=== PATIENT | female | born 1970 | race American Indian/Alaskan Native ===

== ENCOUNTER 2016-08-24 14:57 | Outpatient (CLI) | payer OTHER ==
--- NOTE | 2016-08-24 15:37 | Mammography Report ---
BILATERAL MAMMOGRAM with CAD: HISTORY: Cancer screening. FINDINGS: There are scattered fibroglandular densities (approximately 25%-50% glandular). No mass, distortion, suspicious calcification, or skin change is seen. IMPRESSION: Negative mammogram. There is no mammographic evidence of malignancy. RECOMMENDATION: Follow-up per ACS guidelines. BI-RADS CATEGORY: 1 = Negative ACR BI-RADS MAMMOGRAPHIC CODES: 0 = Needs additional imaging evaluation; 1 = Negative; 2 = Benign; 3 = Probably benign; 4 = Suspicious; 5 = Malignant; 6 = Known biopsy-proven malignancy COMMENT: 1. Dense breast tissue, i.e., adenosis, fibrocystic changes, etc., may obscure an underlying neoplasm. 2. Approximately 10% of cancers are not detected with mammography. 3. A negative mammography report should not delay biopsy if a clinically suspicious mass is present. COMMENT: Patient follow-up letters are generated in [facility].
== END 2016-08-24 14:58 | disposition home or self-care (01) ==
LOC: MAMMO 14:57
PROVIDERS: ATTEND Family Medicine
DX: Z12.31 Encounter for screening mammogram for malignant neoplasm of breast (principal)
CPT/HCPCS: 77067; G0202

== ENCOUNTER 2016-12-29 07:37 | Day surgery (SDC) | payer OTHER ==
[2016-12-29] MEDS ORDERED: NACL 0.9% 1000 ML 1,000 ML IV SCH (08:00)
[2016-12-29] MEDS ORDERED: DIPRIVAN 10 MG/ML IV ONE ×2 (08:21)
--- NOTE | 2016-12-29 08:32 | Anesthesia Day of Surgery ---
Anesthesia Day of Surgery - Day of Surgery Patient Examined: Yes Patient H&P Reviewed: Yes Patient is NPO: Yes
--- NOTE | 2016-12-29 08:33 | Anesthesia Consultation ---
Anesthesia Consult and Med Hx Date of service: 12/29/16 - Airway Anesthetic Teeth Evaluation: Poor (missing many on upper and lower) ROM Head & Neck: Adequate Mental/Hyoid Distance: Adequate Mallampati Class: Class II Intubation Access Assessment: Probably Good - Pulmonary Exam CTA: Yes - Cardiac Exam Cardiac Exam: RRR - Pre-Operative Health Status ASA Pre-Surgery Classification: ASA3 Proposed Anesthetic Plan: MAC - Pulmonary Hx Smoking: No Hx Asthma: No - Cardiovascular System Hx Hypertension: Yes - Gastrointestinal Hx Gastroesophageal Reflux Disease: Yes - Endocrine Hx Non-Insulin Dependent Diabetes: Yes - Other Systems Hx Obesity: Yes
--- NOTE | 2016-12-29 08:47 | Short Stay Summary ---
Short Stay Documentation - Allergies and Medications Current Medications: Allergies No Known Allergies Allergy (Unverified 12/29/16 07:37) Home Medications Medication Instructions Recorded Confirmed Last Taken Type Folic Acid [Folic Acid] 12/29/16 12/28/16 History amLODIPine [Norvasc] 12/29/16 12/28/16 History metFORMIN [Glucophage] 12/29/16 12/27/16 History Active Medications Sodium Chloride (Nacl 0.9% 1000 Ml) 1,000 mls @ 50 mls/hr IV DIRECT [place]IL[place] Last Admin: 12/29/16 08:32 Dose: 50 mls/hr - Brief post op/procedure progress note Date of procedure: 12/29/16 Pre-op diagnosis: 1. Epigastric pain 2. RUQ abdominal pain 3. Functional dyspepsia Post-op diagnosis: same (1. GERD 2. Gastritis with antral erosions 3. Gastric ulcer (linear) 4. Duodenitis 5, Diverticulum, Duodenal bulb) Procedure: EGD with biopsy Anesthesia: MAC Findings: as above Surgeon: MANNY RODRIGUEZ Estimated blood loss: none Pathology: list (1. Antrum) Specimen disposition: to lab Condition: stable - Disposition Condition at discharge: Stable Disposition: DC-01 TO HOME OR SELFCARE Short Stay Discharge Plan Activity: no restrictions Weight Bearing Status: Full Weight Bearing Diet: regular Follow up with: HODA DESHPANDE MD [Primary Care Provider] - 7 Days
[2016-12-29 09:13] VITALS: BP 155/86
--- NOTE | 2016-12-29 10:01 | Post Anesthesia Evaluation ---
- Post Anesthesia Evaluation Patient Participated: Yes Airway Patent: Yes Stable Respiratory Function: Yes Nausea/Vomiting: No Temp > 96.8F: Yes Pain Manageable: Yes Adequeate Hydration: Yes Anesthesia Complications: No
== END 2016-12-29 07:38 | disposition home or self-care (01) ==
LOC: GIO 07:37
PROVIDERS: ATTEND Internal Medicine Gastroenterology
DX: K29.00 Acute gastritis without bleeding (principal); K25.3 Acute gastric ulcer without hemorrhage or perforation; K29.80 Duodenitis without bleeding; K26.3 Acute duodenal ulcer without hemorrhage or perforation; K57.10 Diverticulosis of small intestine without perforation or abscess without bleeding; K21.9 Gastro-esophageal reflux disease without esophagitis; I10 Essential (primary) hypertension; E11.9 Type 2 diabetes mellitus without complications; E66.01 Morbid (severe) obesity due to excess calories; Z68.42 Body mass index [BMI] 45.0-49.9, adult; Z79.899 Other long term (current) drug therapy; Z79.84 Long term (current) use of oral hypoglycemic drugs; Z98.890 Other specified postprocedural states
CPT/HCPCS: 43239; 81025; 88305; 88342; J2704; J7030

== ENCOUNTER 2017-12-18 08:45 | Outpatient (CLI) | payer OTHER ==
--- NOTE | 2017-12-18 15:20 | XRay Report ---
XRAY RIGHT HIP TWO VIEWS: 12/18/17 08:45:00 CLINICAL: Pain. FINDINGS: No fracture or dislocation.An enthesophyte at the greater trochanter. The hip joint is normal. The pelvic bones and left hip are normal. Normal SI joints. Normal soft tissues. IMPRESSION: Right trochanteric enthesopathy and otherwise normal right hip.
--- NOTE | 2017-12-18 22:42 | XRay Report ---
FINAL REPORT EXAM: XR KNEE BILAT 1-2V HISTORY: HIP AND KNEE PROBLEMS TECHNIQUE: Two views of each knee Comparison: None FINDINGS: Normal bony mineralization. Left knee demonstrates medial joint space narrowing and tibial spine blunting, mild medial femoral condylar and tibial plateau spurring. There is left greater than right superior patellar pole enthesophyte and osteophyte formation. No definite suprapatellar bursal effusion. No chondrocalcinosis. The medial lateral joint space on the right are preserved. IMPRESSION: Left knee [id number] tricompartmental osteoarthritis. Mild right knee patellofemoral arthritis.
== END 2017-12-18 08:46 | disposition home or self-care (01) ==
LOC: XRAY 08:45
PROVIDERS: ATTEND Internal Medicine
DX: M17.0 Bilateral primary osteoarthritis of knee (principal); M77.8 Other enthesopathies, not elsewhere classified; I10 Essential (primary) hypertension; K21.9 Gastro-esophageal reflux disease without esophagitis; E11.9 Type 2 diabetes mellitus without complications; E66.9 Obesity, unspecified; Z90.89 Acquired absence of other organs

== ENCOUNTER 2018-12-25 16:14 | Emergency (ER) | payer OTHER ==
[2018-12-25] MEDS ORDERED: CATAPRES PO ONE (16:21)
--- NOTE | 2018-12-25 16:22 | Emergency Department Report ---
Blank Doc - Documentation Documentation: 48-year-old female that presents with HTN and headache. This initial assessment/diagnostic orders/clinical plan/treatment(s) is/are subject to change based on patient's health status, clinical progression and re- assessment by fellow clinical providers in the ED. Further treatment and workup at subsequent clinical providers discretion. Patient/guardians urged not to elope from the ED as their condition may be serious if not clinically assessed and managed. Initial orders include: 1- Patient sent to MAIN ED for further evaluation and treatment 2- labs 3- CT head
[2018-12-25 16:48] LABS: Basophils % (Auto) 0.7 % (0.0-1.8); Eosinophils # (Auto) 0.1 K/mm3 (0.0-0.4); Eosinophils % (Auto) 1.5 % (0.0-4.3); Hematocrit 39.4 % (30.3-42.9); Lymphocytes # (Auto) 1.5 K/mm3 (1.2-5.4); Lymphocytes % (Auto) 29.5 % (13.4-35.0); Mean Corpuscular HGB Conc 33 % (30-34); Mean Corpuscular Volume 78 fl (79-97); Monocytes # (Auto) 0.3 K/mm3 (0.0-0.8); Monocytes % (Auto) 4.9 % (0.0-7.3); Platelet Count 296 K/mm3 (140-440); Red Blood Count 5.04 M/mm3 (3.65-5.03); Red Cell Distribution Width 14.7 % (13.2-15.2)
[2018-12-25 17:08] LABS: Alanine Aminotransferase 28 units/L (7-56); Albumin 3.7 g/dL (3.9-5); BUN/Creatinine Ratio 14; Blood Urea Nitrogen 7 mg/dL (7-17); Calcium 9.1 mg/dL (8.4-10.2); Hemolysis Index 10
--- NOTE | 2018-12-25 17:22 | Cat Scan Report ---
CT BRAIN: 12/25/2018 INDICATION / CLINICAL INFORMATION: MAIN: headache . COMPARISON: None available. FINDINGS: BRAIN/INTRACRANIAL STRUCTURES: Unenhanced CT images of the brain demonstrate no evidence of acute int racranial abnormality. Ventricles and sulci are normal in size and shape. There is no evidence of acute ischemic injury, hemorrhage, or mass. There are no abnormal extra-axial fluid collections. EXTRACRANIAL STRUCTURES: Unremarkable. IMPRESSION: Negative unenhanced CT of the brain. All CT scans at this location are performed using dose reduction to ALARA by means of automated expos ure control. Signer Name: Peter De La Torre MD Signed: 12/25/2018 5:18 PM Workstation Name: [id number]
[2018-12-25] MEDS ORDERED: DILAUDID IV ONE (17:29)
[2018-12-25] MEDS ORDERED: ZOFRAN IV ONE (17:29)
[2018-12-25] MEDS ORDERED: TORADOL IV ONE (17:43)
--- NOTE | 2018-12-25 17:54 | Emergency Department Report ---
ED Headache HPI - General Chief Complaint: Headache Stated Complaint: HEADACHE/BODY PAIN Time Seen by Provider: 12/25/18 16:20 Source: patient Exam Limitations: no limitations - History of Present Illness Initial Comments: 48-year-old obese female with past medical history diabetes, hypertension migraines, ocular migraines, presents complaining of a constant headache since Monday. Headache is currently 10/10 in intensity. Headache extends on the top of head and radiates down the bilateral arms. Headache started gradually and then worsened on Monday. No photosensitivity with it. She complains of pain to her left trapezius muscle to the shoulder which is worse with palpation and movement. She has chronic nerve damage with decreased sensation to the right arm. Patient also presents with significantly elevated blood pressure has been noncompliant with blood pressure medicine for at least 2 years. He is not taking any specific migraine medication and pain with eycy-lza-flncwkg medication. Allergies/Adverse Reactions: Allergies No Known Allergies Allergy (Unverified 12/29/16 07:37) Home Medications: Ambulatory Orders Folic Acid 12/29/16 amLODIPine [Norvasc] 12/29/16 metFORMIN [Glucophage] 12/29/16 Butalb/Acetaminophen/Caffeine [Fioricet 50-300-40 mg CAP] 1 cap PO Q6HR PRN #20 cap 12/25/18 HYDROcodone/APAP 5-325 [[place] 5/325] 1 each PO Q6HR PRN #20 tablet 12/25/18 Ibuprofen [Motrin] 800 mg PO Q8HR PRN #20 tablet 12/25/18 Ondansetron [Zofran Odt] 4 mg PO Q8HR PRN #14 tab.rapdis 12/25/18 metFORMIN [Glucophage] 850 mg PO BID #60 tablet 12/25/18 ED Review of Systems ROS: Stated complaint: HEADACHE/BODY PAIN Other details as noted in HPI Comment: All other systems reviewed and negative ED Past Medical Hx - Past Medical History Previous Medical History?: Yes Hx Hypertension: Yes Hx Diabetes: Yes Hx Headaches / Migraines: Yes (Migraine, ocular migraine) Hx Asthma: No - Surgical History Past Surgical History?: Yes Additional Surgical History: tonsillectomy - Social History Smoking Status: Never Smoker Substance Use Type: None - Medications Home Medications: Home Medications Medication Instructions Recorded Confirmed Last Taken Type Folic Acid 12/29/16 12/28/16 History amLODIPine [Norvasc] 12/29/16 12/28/16 History metFORMIN [Glucophage] 12/29/16 12/27/16 History Butalb/Acetaminophen/Caffeine 1 cap PO Q6HR PRN #20 cap 12/25/18 Unknown Rx [Fioricet 50-300-40 mg CAP] HYDROcodone/APAP 5-325 [[place] 1 each PO Q6HR PRN #20 tablet 12/25/18 Unknown Rx 5/325] Ibuprofen [Motrin] 800 mg PO Q8HR PRN #20 tablet 12/25/18 Unknown Rx Ondansetron [Zofran Odt] 4 mg PO Q8HR PRN #14 tab.rapdis 12/25/18 Unknown Rx metFORMIN [Glucophage] 850 mg PO BID #60 tablet 12/25/18 Unknown Rx ED Physical Exam - General Limitations: No Limitations - Other Other exam information: General: No acute distress Head: Atraumatic normocephalic Eyes: Normal appearance, pupils equal reactive to light, extraocular movements intact ENT: Normal oropharynx Neck: Normal appearance, tenderness along the left trapezius and paracervical spinal muscle extending down to the shoulder. Chest: Clear to auscultation bilaterally, no wheezes, rales, or crackles Cardiovascular: Regular rate and rhythm Abdomen: Soft, nondistended, nontender, no rebound or guarding, normal bowel sounds Back: Normal inspection, nontender Extremity: Pain and tenderness along the trapezius and left arm with movement and palpation. Neuro: Alert and oriented 3, speech clear, weak right hand stave grader secondary to carpal tunnel, we can't stave grader to the left arm due to pain. Bilateral lower extremity weakness secondary to thigh pain Psychiatric: Normal affect Skin: No rash, warmth, or erythema ED Course Vital Signs 12/25/18 12/25/18 12/25/18 16:21 16:25 17:24 Temperature 98.6 F Pulse Rate 91 H 91 H Respiratory 20 16 Rate Blood Pressure 225/116 225/116 Blood Pressure [Left] O2 Sat by Pulse 98 98 Oximetry 12/25/18 12/25/18 12/25/18 17:28 18:45 19:10 Temperature Pulse Rate 77 Respiratory 15 Rate Blood Pressure Blood Pressure 193/89 162/79 [Left] O2 Sat by Pulse Oximetry 12/25/18 12/25/18 12/25/18 19:30 20:01 20:31 Temperature 97.6 F Pulse Rate 77 82 74 Respiratory 15 16 16 Rate Blood Pressure 157/64 157/64 Blood Pressure 160/73 [Left] O2 Sat by Pulse 94 95 97 Oximetry 12/25/18 12/25/18 12/25/18 21:00 22:00 22:35 Temperature Pulse Rate 74 71 76 Respiratory 16 16 15 Rate Blood Pressure Blood Pressure 139/71 130/67 130/67 [Left] O2 Sat by Pulse 95 97 96 Oximetry ED Medical Decision Making - Lab Data Result diagrams: 12/25/18 16:29 12/25/18 16:29 Lab Results 12/25/18 12/25/18 12/25/18 Range/Units 16:29 16:29 17:35 WBC 5.3 (4.5-11.0) K/mm3 RBC 5.04 H (3.65-5.03) M/mm3 Hgb 13.0 (10.1-14.3) gm/dl Hct 39.4 (30.3-42.9) % MCV 78 L (79-97) fl MCH 26 L (28-32) pg MCHC 33 (30-34) % RDW 14.7 (13.2-15.2) % Plt Count 296 (140-440) K/mm3 Lymph % (Auto) 29.5 (13.4-35.0) % [facility] [place] % (Auto) 4.9 (0.0-7.3) % Eos % (Auto) 1.5 (0.0-4.3) % Baso % (Auto) 0.7 (0.0-1.8) % Lymph # 1.5 (1.2-5.4) K/mm3 [facility] [place] # 0.3 (0.0-0.8) K/mm3 Eos # 0.1 (0.0-0.4) K/mm3 Baso # 0.0 (0.0-0.1) K/mm3 Seg Neutrophils % 63.4 (40.0-70.0) % Seg Neutrophils # 3.3 (1.8-7.7) K/mm3 Sodium 141 (137-145) mmol/L Potassium 3.6 (3.6-5.0) mmol/L Chloride 102.3 (98-107) mmol/L Carbon Dioxide 26 (22-30) mmol/L Anion Gap 16 mmol/L BUN 7 (7-17) mg/dL Creatinine 0.5 L (0.7-1.2) mg/dL Estimated GFR > 60 ml/min BUN/Creatinine Ratio 14 % Glucose 256 H (65-100) mg/dL Calcium 9.1 (8.4-10.2) mg/dL Total Bilirubin 0.40 (0.1-1.2) mg/dL AST 16 (5-40) units/L ALT 28 (7-56) units/L Alkaline Phosphatase 62 (35-129) units/L Total Protein 6.9 (6.3-8.2) g/dL Albumin 3.7 L (3.9-5) g/dL Albumin/Globulin Ratio 1.2 % HCG, Qual Negative (Negative) - Radiology Data Radiology results: report reviewed CT BRAIN: 12/25/2018 INDICATION / CLINICAL INFORMATION: MAIN: headache . COMPARISON: None available. FINDINGS: BRAIN/INTRACRANIAL STRUCTURES: Unenhanced CT images of the brain demonstrate no evidence of acute intracranial abnormality. Ventricles and sulci are normal in size and shape. There is no evidence of acute ischemic injury, hemorrhage, or mass. There are no abnormal extra- axial fluid collections. EXTRACRANIAL STRUCTURES: Unremarkable. IMPRESSION: Negative unenhanced CT of the brain. CTA of the brain: HISTORY: Headaches COMPARISON: None. TECHNIQUE: Routine non-contrast CT Head, post-contrast CTA of the head, are performed. 3-D/MIP reformats postprocessed. All CT scans at this location are performed using CT dose reduction for ALARA by means of automated exposure control. CONTRAST: 100 ml of Isovue 370 FINDINGS: CTA HEAD: Intracranial vertebral arteries: No significant abnormality. Basilar artery: No significant abnormality. Posterior cerebral arteries: No significant abnormality. Intracranial internal carotid arteries: No significant abnormality. Anterior cerebral arteries: No significant abnormality. Middle cerebral arteries: No significant abnormality. Dural venous sinuses:Not optimally opacified. No significant abnormality. I do not see an aneurysm. IMPRESSION: Normal CTA of the brain. CTA NECK WITH CONTRAST HISTORY: Headaches COMPARISON: None. TECHNIQUE: Routine CTA of the neck was performed. 3-D/MIP reformats were postprocessed. Percentage stenosis is determined by direct quantitative measurements of diseased internal carotid artery diameter compared with normal distal internal carotid artery reference segments or by criteria similar to NASCET where applicable. All CT scans at this location are performed using CT dose reduction for ALARA by means of automated exposure control. CONTRAST: 100 ml of Isovue 370 FINDINGS: Aortic arch: No significant abnormality. Cervical vertebral arteries: No significant abnormality. Common carotid arteries: No significant abnormality. Carotid bifurcations: Normal Cervical internal carotid arteries: Only the proximal 2 cm of internal carotid arteries are not included in this CTA. Normal. Additional findings: Lung apices are normal. Bridging osteophytes are seen in the cervical spine from C2 to C7. 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 IMPRESSION: Normal carotid bifurcations - Medical Decision Making Patient received clonidine 0.2 mg in triage with improvement in blood pressure. Patient initially received Dilaudid and zofran for headache and reports that it helped a little bit but throbbing headache came back. She then was treated with Reglan and Benadryl. I woke up patient intermittently and she states that her pain had resolved after the second round of medication. At time of discharge she reports feeling "much better" and headache has resolved and she feels well enough to go home. Patient did receive lab results which were unremarkable besides mild hyperglycemia. She also had a CT head noncontrast that was unremarkable and a CT angiogram head and neck that did not show any signs of aneurysms. Patient has a history of migraines and headache aborted with a migraine cocktail of medication. She be discharged home with meds and neurology follow-up recommended. - Differential Diagnosis hypertensive headache, intracranial hemorrhage, migraine Critical Care Time: No Critical care attestation.: If time is entered above; I have spent that time in minutes in the direct care of this critically ill patient, excluding procedure time. ED Disposition Clinical Impression: Uncontrolled hypertension, Headache, Hx of migraine headaches, Diabetes Disposition: DC-01 TO HOME OR SELFCARE Is pt being admited?: No Does the pt Need Aspirin: No Condition: Stable Instructions: Hypertension (ED), Migraine Headache (ED), Acute Headache (ED), Diabetes Mellitus Type 2 in Adults (ED) Additional Instructions: Take the medications as prescribed. Follow-up with your doctor or with a doctor/clinic provided. Return is symptoms worsen as indicated by the d ischarge instructions. Prescriptions: Butalb/Acetaminophen/Caffeine [Fioricet 50-300-40 mg CAP] 1 cap PO Q6HR PRN #20 cap PRN Reason: Headache metFORMIN [Glucophage] 850 mg PO BID #60 tablet Ibuprofen [Motrin] 800 mg PO Q8HR PRN #20 tablet PRN Reason: Pain, Moderate (4-6) HYDROcodone/APAP 5-325 [[place] 5/325] 1 each PO Q6HR PRN #20 tablet PRN Reason: Pain , Severe (7-10) Ondansetron [Zofran Odt] 4 mg PO Q8HR PRN #14 tab.rapdis PRN Reason: Nausea And Vomiting [facility]: [facility]OX[facility] [Primary Care Provider] - 3-5 Days DEB JENKINS MD [Staff Physician] - 3-5 Days (neurologist ) Time of Disposition: 23:26
--- NOTE | 2018-12-25 19:20 | Cat Scan Report ---
CTA NECK WITH CONTRAST HISTORY: Headaches COMPARISON: None. TECHNIQUE: Routine CTA of the neck was performed. 3-D/MIP reformats were postprocessed. Percentage s tenosis is determined by direct quantitative measurements of diseased internal carotid artery diamete r compared with normal distal internal carotid artery reference segments or by criteria similar to NA SCET where applicable. All CT scans at this location are performed using CT dose reduction for ALARA by means of automated exposure control. CONTRAST: 100 ml of Isovue 370 FINDINGS: Aortic arch: No significant abnormality. Cervical vertebral arteries: No significant abnormality. Common carotid arteries: No significant abnormality. Carotid bifurcations: Normal Cervical internal carotid arteries: Only the proximal 2 cm of internal carotid arteries are not inclu ded in this CTA. Normal. Additional findings: Lung apices are normal. Bridging osteophytes are seen in the cervical spine from C2 to C7. 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 IMPRESSION: Normal carotid bifurcations Signer Name: Anadn Lazo MD Signed: 12/25/2018 7:16 PM Workstation Name: [id number]
--- NOTE | 2018-12-25 19:29 | Cat Scan Report ---
CTA of the brain: HISTORY: Headaches COMPARISON: None. TECHNIQUE: Routine non-contrast CT Head, post-contrast CTA of the head, are performed. 3-D/MIP refor mats postprocessed. All CT scans at this location are performed using CT dose reduction for ALARA by means of automated exposure control. CONTRAST: 100 ml of Isovue 370 FINDINGS: CTA HEAD: Intracranial vertebral arteries: No significant abnormality. Basilar artery: No significant abnormality. Posterior cerebral arteries: No significant abnormality. Intracranial internal carotid arteries: No significant abnormality. Anterior cerebral arteries: No significant abnormality. Middle cerebral arteries: No significant abnormality. Dural venous sinuses:Not optimally opacified. No significant abnormality. I do not see an aneurysm. IMPRESSION: Normal CTA of the brain. Signer Name: Anand Lazo MD Signed: 12/25/2018 7:25 PM Workstation Name: [id number]
[2018-12-25] MEDS ORDERED: BENADRYL IV ONE (19:53)
[2018-12-25] MEDS ORDERED: REGLAN IV ONE (19:53)
[2018-12-26 00:41] VITALS: BP 150/75
== END 2018-12-26 00:10 | disposition home or self-care (01) ==
LOC: ED 16:14
DX: G43.909 Migraine, unspecified, not intractable, without status migrainosus (principal); I10 Essential (primary) hypertension; E11.9 Type 2 diabetes mellitus without complications; Z90.89 Acquired absence of other organs; Z79.84 Long term (current) use of oral hypoglycemic drugs
CPT/HCPCS: 36415; 70450; 70496; 70498; 80053; 84703; 85025; 96374; 96375; 99284; J1170; J1200; J1885; J2405; J2765; Q9967

== ENCOUNTER 2019-04-02 09:52 | Emergency (ER) | payer SELFPAY ==
[2019-04-02] MEDS ORDERED: ONDANSETRON 4 MG ODT TAB PO ONE (10:21)
[2019-04-02] MEDS ORDERED: LOPERAMIDE 2 MG CAP PO ONE (10:22)
--- NOTE | 2019-04-02 10:25 | Emergency Department Report ---
ED N/V/D HPI - General Chief complaint: Abdominal Pain Stated complaint: ABD PAIN Time Seen by Provider: 04/02/19 10:10 Source: patient Mode of arrival: Ambulatory Limitations: No Limitations - History of Present Illness Initial comments: 48-year-old female with history of hypertension and diabetes presents to ED with complaint of abdominal pain, vomiting, and diarrhea. Patient reports vomiting began on yesterday. States she awoke this morning with burning abdominal pain located in the mid abdomen, nonradiating. This morning she reports diarrhea and vomiting in addition to the abdominal pain. She denies any sick contacts. MD complaint: nausea, vomiting, diarrhea, abdominal pain -: days(s) (2) Associated Abdominal Pain: Yes Location: periumbillcal, epigastric Radiation: none Severity: moderate Quality: other (burning) Consistency: now resolved Improves with: none Worsens with: none Associated Symptoms: nausea/vomiting. denies: fever/chills - Related Data Home Medications Medication Instructions Recorded Confirmed Last Taken Folic Acid 12/29/16 12/28/16 amLODIPine 12/29/16 12/28/16 metFORMIN [Glucophage] 12/29/16 12/27/16 Previous Rx's Medication Instructions Recorded Last Taken Type Butalb/Acetaminophen/Caffeine 1 cap PO Q6HR PRN #20 cap 12/25/18 Unknown Rx [Fioricet 50-300-40 mg CAP] HYDROcodone/APAP 5-325 [[place] 1 each PO Q6HR PRN #20 tablet 12/25/18 Unknown Rx 5/325] Ibuprofen [Motrin] 800 mg PO Q8HR PRN #20 tablet 12/25/18 Unknown Rx Ondansetron [Zofran Odt] 4 mg PO Q8HR PRN #14 tab.rapdis 12/25/18 Unknown Rx metFORMIN [Glucophage] 850 mg PO BID #60 tablet 12/25/18 Unknown Rx Dicyclomine [Bentyl] 20 mg PO QID PRN #20 tablet 04/02/19 Unknown Rx Ondansetron [Zofran Odt] 4 mg PO Q8HR PRN #20 tab.rapdis 04/02/19 Unknown Rx Allergies Allergy/AdvReac Type Severity Reaction Status Date / Time metformin Allergy Vomiting Verified 04/02/19 10:02 ED Review of Systems ROS: Stated complaint: ABD PAIN Other details as noted in HPI Comment: All other systems reviewed and negative Constitutional: denies: chills, fever Cardiovascular: denies: chest pain Gastrointestinal: abdominal pain, nausea, vomiting, diarrhea Genitourinary: denies: dysuria, frequency ED Past Medical Hx - Past Medical History Hx Hypertension: Yes Hx Diabetes: Yes Hx Headaches / Migraines: Yes (Migraine, ocular migraine) Hx Asthma: No - Surgical History Additional Surgical History: tonsillectomy - Social History Smoking Status: Never Smoker Substance Use Type: None - Medications Home Medications: Home Medications Medication Instructions Recorded Confirmed Last Taken Type Folic Acid 12/29/16 12/28/16 History amLODIPine 12/29/16 12/28/16 History metFORMIN [Glucophage] 12/29/16 12/27/16 History Butalb/Acetaminophen/Caffeine 1 cap PO Q6HR PRN #20 cap 12/25/18 Unknown Rx [Fioricet 50-300-40 mg CAP] HYDROcodone/APAP 5-325 [[place] 1 each PO Q6HR PRN #20 tablet 12/25/18 Unknown Rx 5/325] Ibuprofen [Motrin] 800 mg PO Q8HR PRN #20 tablet 12/25/18 Unknown Rx Ondansetron [Zofran Odt] 4 mg PO Q8HR PRN #14 tab.rapdis 12/25/18 Unknown Rx metFORMIN [Glucophage] 850 mg PO BID #60 tablet 12/25/18 Unknown Rx Dicyclomine [Bentyl] 20 mg PO QID PRN #20 tablet 04/02/19 Unknown Rx Ondansetron [Zofran Odt] 4 mg PO Q8HR PRN #20 tab.rapdis 04/02/19 Unknown Rx ED Physical Exam - General Limitations: No Limitations General appearance: alert, in no apparent distress, obese - Head Head exam: Present: atraumatic, normocephalic - Eye Eye exam: Present: normal appearance - ENT ENT exam: Present: mucous membranes moist - Neck Neck exam: Present: normal inspection - Respiratory Respiratory exam: Present: normal lung sounds bilaterally. Absent: respiratory distress - Cardiovascular Cardiovascular Exam: Present: regular rate, normal rhythm - GI/Abdominal GI/Abdominal exam: Present: soft. Absent: distended, tenderness - Extremities Exam Extremities exam: Present: normal inspection - Neurological Exam Neurological exam: Present: alert, oriented X3 - Psychiatric Psychiatric exam: Present: normal affect, normal mood - Skin Skin exam: Present: warm, dry, intact, normal color ED Course Vital Signs 04/02/19 04/02/19 09:59 11:33 Temperature 98.9 F Pulse Rate 79 Respiratory 18 Rate Blood Pressure 177/98 158/78 O2 Sat by Pulse 96 Oximetry ED Medical Decision Making - Lab Data Result diagrams: 04/02/19 10:24 04/02/19 10:24 - Medical Decision Making - UA shows large RBCs, however, pt states she is currently on her menstrual period; no urinary sx's present - no emesis here in the ED, abdomen is soft and nontender - labs unremarkable except for mildly elevated glucose, no signs of DKA - pt feeling much better, will d/c home - outpt f/u advised; return precautions given - Differential Diagnosis gastroenteritis, pancreatitis, gastritis Critical care attestation.: If time is entered above; I have spent that time in minutes in the direct care of this critically ill patient, excluding procedure time. ED Disposition Clinical Impression: Acute gastroenteritis Disposition: - TO HOME OR SELFCARE Is pt being admited?: No Condition: Stable Instructions: Gastroenteritis (ED), Abdominal Pain (ED) Prescriptions: Dicyclomine [Bentyl] 20 mg PO QID PRN #20 tablet PRN Reason: abdominal pain Ondansetron [Zofran Odt] 4 mg PO Q8HR PRN #20 tab.rapdis PRN Reason: Vomiting Referrals: [facility] [Provider Group] - 3-5 Days Time of Disposition: 11:28
[2019-04-02 10:51] LABS: Basophils % (Auto) 0.7 % (0.0-1.8); Eosinophils # (Auto) 0.2 K/mm3 (0.0-0.4); Eosinophils % (Auto) 4.3 % (0.0-4.3); Hematocrit 41.4 % (30.3-42.9); Hemoglobin 13.3 gm/dl (10.1-14.3); Lymphocytes # (Auto) 1.3 K/mm3 (1.2-5.4); Lymphocytes % (Auto) 28.2 % (13.4-35.0); Mean Corpuscular HGB Conc 32 % (30-34); Mean Corpuscular Volume 77 fl (79-97); Monocytes # (Auto) 0.2 K/mm3 (0.0-0.8); Monocytes % (Auto) 4.9 % (0.0-7.3); Platelet Count 299 K/mm3 (140-440); Red Blood Count 5.38 M/mm3 (3.65-5.03); Red Cell Distribution Width 15.1 % (13.2-15.2)
[2019-04-02 10:59] LABS: Bilirubin,Urine NEG (Negative); Blood,Urine LG (Negative); Color,Urine Yellow (Yellow); HCG Qualitative,Urine Negative (Negative); Mucus,Urine FEW /HPF; RBC,Urine > 182.0 /HPF (0.0-6.0); Urobilinogen,Urine < 2.0 mg/dL (<2.0)
[2019-04-02 11:16] LABS: Alanine Aminotransferase 18 units/L (7-56); Albumin 3.8 g/dL (3.9-5); BUN/Creatinine Ratio 14; Blood Urea Nitrogen 10 mg/dL (7-17); Hemolysis Index 6
[2019-04-02 11:20] LABS: Bilirubin,Direct < 0.2 mg/dL (0-0.2)
[2019-04-02 11:33] VITALS: BP 158/78
== END 2019-04-02 11:39 | disposition home or self-care (01) ==
LOC: ED 09:52
DX: K52.9 Noninfective gastroenteritis and colitis, unspecified (principal); I10 Essential (primary) hypertension; E11.9 Type 2 diabetes mellitus without complications; G43.909 Migraine, unspecified, not intractable, without status migrainosus; Z90.89 Acquired absence of other organs; Z79.899 Other long term (current) drug therapy; Z88.8 Allergy status to other drugs, medicaments and biological substances
CPT/HCPCS: 36415; 80048; 80076; 81001; 81025; 82962; 83690; 85025; Q0162

== ENCOUNTER 2020-12-05 20:06 | Emergency (ER) | payer BC, OTHER ==
--- NOTE | 2020-12-05 20:52 | XRay Report ---
CHEST 1 VIEW INDICATION / CLINICAL INFORMATION: cough. COMPARISON: None available. FINDINGS: SUPPORT DEVICES: None. HEART / MEDIASTINUM: No significant abnormality. LUNGS / PLEURA: No significant pulmonary or pleural abnormality. No pneumothorax. Fine detail of the lungs is somewhat limited by the patient's body habitus and portable technique. ADDITIONAL FINDINGS: No significant additional findings. IMPRESSION: 1. No acute findings. Signer Name: Alaina Kaur MD Signed: 12/05/2020 8:48 PM Workstation Name: [id number]
[2020-12-05 21:34] LABS: Basophils % (Auto) 0.3 % (0.0-1.8); Eosinophils # (Auto) 0.1 K/mm3 (0.0-0.4); Eosinophils % (Auto) 2.2 % (0.0-4.3); Hematocrit 38.9 % (30.3-42.9); Hemoglobin 12.6 gm/dl (10.1-14.3); Lymphocytes # (Auto) 2.1 K/mm3 (1.2-5.4); Lymphocytes % (Auto) 32.7 % (13.4-35.0); Mean Corpuscular HGB Conc 32 % (30-34); Mean Corpuscular Volume 73 fl (79-97); Monocytes # (Auto) 0.4 K/mm3 (0.0-0.8); Monocytes % (Auto) 6.7 % (0.0-7.3); Platelet Count 341 K/mm3 (140-440); Red Blood Count 5.35 M/mm3 (3.65-5.03); Red Cell Distribution Width 15.5 % (13.2-15.2)
[2020-12-05 21:49] LABS: Alanine Aminotransferase 37 units/L (7-56); Albumin 3.8 g/dL (3.9-5); Blood Urea Nitrogen 9 mg/dL (7-17); Calcium 9.5 mg/dL (8.4-10.2); Hemolysis Index 1
[2020-12-05 21:54] LABS: BUN/Creatinine Ratio 15
[2020-12-05] MEDS ORDERED: IBUPROFEN 800 MG TAB PO ONE (22:03)
[2020-12-05] MEDS ORDERED: oxyCODONE /ACETAMINOPHEN 5-325MG TAB PO ONE (22:03)
[2020-12-05] MEDS ORDERED: ONDANSETRON 4 MG ODT TAB PO ONE (22:03)
--- NOTE | 2020-12-05 22:09 | Emergency Department Report ---
ED Fall HPI - General Chief Complaint: Fall Stated Complaint: CRAMPING IN LEGS/HBP Source: patient Mode of arrival: Wheelchair - History of Present Illness Initial Comments: Patient is a 50-year-old -German female with a history of hypertension, morbid obesity, rjl-czfayzb-kokztycqs diabetes, migraine headaches, chronic bilateral neuropathic pain of her lower extremities who presents to the ED with complaint of acute onset persistent worsening low back muscle spasm and bilateral lower extremity muscle pain after she developed acute exacerbation of back chronic muscle spasm and fell down on the floor of a store about 2 hours ago. Patient states that the pain has been waxing and waning since the incident occurred. Patient also complains of persistent nasal and sinus congestion with persistent dry cough for the last 2 days. Patient denies head or neck injuries, back injuries, knee pain, chest pain or shortness of breath, nausea and vomiting, loss of consciousness, syncope, dizziness, lightheadedness, palpitations or change in vision, numbness and tingling or weakness of lower ext remities bilaterally. MD Complaint: fall, other (back muscle spasms; bilateral leg cramps) -: Sudden, hour(s) (2) Fall From: standing When Fall Occurred: 1-3 hours LOADING DOCK HAND Fall Witnessed: yes, by family Place Fall Occurred: other (In a clothes store) Loss of Consciousness: none Prolonged Down Time?: no Symptoms Prior to Fall: none Location: back (Low back muscle spasm) Location - Extremities: Left: Thigh (Muscle spasm), Knee (Muscle spasm), Leg (Muscle spasm), Right: Thigh, Knee, Leg Severity: severe Severity scale (0 -10): 8 Quality: sharp, aching Context: tripped/slipped Associated Symptoms: denies. denies: headache, neck pain, numbness, weakness, chest paint, shortness of breath, abdominal pain, hematuria, unable to walk, lightheaded, vertigo, confusion - Related Data Home Medications Medication Instructions Recorded Confirmed Last Taken Folic Acid 12/29/16 12/28/16 amLODIPine 12/29/16 12/28/16 metFORMIN [Glucophage] 12/29/16 12/27/16 Previous Rx's Medication Instructions Recorded Last Taken Type Butalb/Acetaminophen/Caffeine 1 cap PO Q6HR PRN #20 cap 12/25/18 Unknown Rx [Fioricet 50-300-40 mg CAP] HYDROcodone/APAP 5-325 [[place] 1 each PO Q6HR PRN #20 tablet 12/25/18 Unknown Rx 5/325] Ibuprofen [Motrin] 800 mg PO Q8HR PRN #20 tablet 12/25/18 Unknown Rx Ondansetron [Zofran Odt] 4 mg PO Q8HR PRN #14 tab.rapdis 12/25/18 Unknown Rx metFORMIN [Glucophage] 850 mg PO BID #60 tablet 12/25/18 Unknown Rx Dicyclomine [Bentyl] 20 mg PO QID PRN #20 tablet 04/02/19 Unknown Rx Ondansetron [Zofran Odt] 4 mg PO Q8HR PRN #20 tab.rapdis 04/02/19 Unknown Rx Baclofen 20 mg PO Q12H PRN #30 tablet 12/05/20 Unknown Rx Benzonatate [Tessalon Perles] 100 mg PO Q8HR #30 capsule 12/05/20 Unknown Rx Cetirizine HCl [Zyrtec 10mg tab] 10 mg PO DAILY #30 tablet 12/05/20 Unknown Rx Ibuprofen [Motrin] 800 mg PO Q8HR PRN #30 tablet 12/05/20 Unknown Rx traMADoL [Ultram] 50 mg PO Q6HR PRN #12 tablet 12/05/20 Unknown Rx Allergies Allergy/AdvReac Type Severity Reaction Status Date / Time metformin Allergy Vomiting Verified 04/02/19 10:02 ED Review of Systems ROS: Stated complaint: CRAMPING IN LEGS/HBP Other details as noted in HPI Constitutional: denies: chills, fever Eyes: denies: eye pain, eye discharge, vision change ENT: congestion. denies: ear pain, throat pain Respiratory: cough. denies: shortness of breath, wheezing Cardiovascular: denies: chest pain, palpitations Endocrine: no symptoms reported Gastrointestinal: denies: abdominal pain, nausea, vomiting, diarrhea Genitourinary: denies: urgency, dysuria, frequency, hematuria, discharge Musculoskeletal: back pain (Low back pain), arthralgia (Diffuse bilateral lower extremity pain and muscle spasm), myalgia. 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 - Surgical History Past Surgical History?: Yes Additional Surgical History: tonsillectomy - Social History Smoking Status: Never Smoker Substance Use Type: None - Medications Home Medications: Home Medications Medication Instructions Recorded Confirmed Last Taken Type Folic Acid 12/29/16 12/28/16 History amLODIPine 12/29/16 12/28/16 History metFORMIN [Glucophage] 12/29/16 12/27/16 History Butalb/Acetaminophen/Caffeine 1 cap PO Q6HR PRN #20 cap 12/25/18 Unknown Rx [Fioricet 50-300-40 mg CAP] HYDROcodone/APAP 5-325 [[place] 1 each PO Q6HR PRN #20 tablet 12/25/18 Unknown Rx 5/325] Ibuprofen [Motrin] 800 mg PO Q8HR PRN #20 tablet 12/25/18 Unknown Rx Ondansetron [Zofran Odt] 4 mg PO Q8HR PRN #14 tab.rapdis 12/25/18 Unknown Rx metFORMIN [Glucophage] 850 mg PO BID #60 tablet 12/25/18 Unknown Rx Dicyclomine [Bentyl] 20 mg PO QID PRN #20 tablet 04/02/19 Unknown Rx Ondansetron [Zofran Odt] 4 mg PO Q8HR PRN #20 tab.rapdis 04/02/19 Unknown Rx Baclofen 20 mg PO Q12H PRN #30 tablet 12/05/20 Unknown Rx Benzonatate [Tessalon Perles] 100 mg PO Q8HR #30 capsule 12/05/20 Unknown Rx Cetirizine HCl [Zyrtec 10mg tab] 10 mg PO DAILY #30 tablet 12/05/20 Unknown Rx Ibuprofen [Motrin] 800 mg PO Q8HR PRN #30 tablet 12/05/20 Unknown Rx traMADoL [Ultram] 50 mg PO Q6HR PRN #12 tablet 12/05/20 Unknown Rx ED Physical Exam - General Limitations: Physical Limitation General appearance: alert, in no apparent distress, obese - Head Head exam: Present: atraumatic, normocephalic, normal inspection - Eye Eye exam: Present: normal appearance, PERRL, EOMI Pupils: Present: normal accommodation - ENT ENT exam: Present: normal orophraynx, mucous membranes moist, TM's normal bilaterally, normal external ear exam, other (Grossly congested nasal passages) - Neck Neck exam: Present: normal inspection, full ROM. Absent: tenderness, meningismus - Respiratory Respiratory exam: Present: normal lung sounds bilaterally. Absent: respiratory distress, wheezes, rales, rhonchi, chest wall tenderness, accessory muscle use, decreased breath sounds, prolonged expiratory - Cardiovascular Cardiovascular Exam: Present: normal rhythm, tachycardia, normal heart sounds. Absent: systolic murmur, diastolic murmur, rubs, gallop - GI/Abdominal GI/Abdominal exam: Present: soft, normal bowel sounds. Absent: tenderness, guarding, rebound, hyperactive bowel sounds, hypoactive bowel sounds - Extremities Exam Extremities exam: Present: normal inspection, full ROM, tenderness (Palpable diffuse bilateral lower extremity muscle tenderness), normal capillary refill. Absent: pedal edema, joint swelling, calf tenderness - Back Exam Back exam: Present: normal inspection, full ROM, tenderness (Palpable lumbosacral paraspinal musculoskeletal tenderness), muscle spasm, paraspinal tenderness. Absent: CVA tenderness (R), CVA tenderness (L), vertebral tenderness - Neurological Exam Neurological exam: Present: alert, oriented X3, CN II-XII intact, normal gait, reflexes normal - Psychiatric Psychiatric exam: Present: normal affect, normal mood, anxious - Skin Skin exam: Present: warm, dry, intact, normal color. Absent: rash ED Course Vital Signs 12/05/20 20:17 Temperature 99.4 F Pulse Rate 117 H Respiratory 19 Rate Blood Pressure 154/79 [Right] O2 Sat by Pulse 98 Oximetry ED Medical Decision Making - Lab Data Result diagrams: 12/05/20 20:28 12/05/20 20:28 - Radiology Data Radiology results: report reviewed, image reviewed [facility] [address] [place] [address] XRay Report Signed Patient: JUSTICE BRITTON MR# : [id number] : 1970 Acct:[id number] Age/Sex: 50 / F ADM Date: 12/05/20 Loc: ED Attending Dr: Ordering Physician: KENDALL ALOMNTE Date of Service: 12/05/20 Procedure(s): XR chest 1V ap Accession Number(s): [id number] cc: KENDALL ALMONTE Fluoro Time In Minutes: CHEST 1 VIEW INDICATION / CLINICAL INFORMATION: cough. COMPARISON: None available. FINDINGS: SUPPORT DEVICES: None. HEART / MEDIASTINUM: No significant abnormality. LUNGS / PLEURA: No significant pulmonary or pleural abnormality. No pneumothorax. Fine detail of the lungs is somewhat limited by the patient's body habitus and portable technique. ADDITIONAL FINDINGS: No significant additional findings. IMPRESSION: 1. No acute findings. Signer Name: Alaina Kaur MD Signed: 12/05/2020 8:48 PM Workstation Name: [id number] Transcribed By: JR Dictated By: Alaina Kaur MD Electronically Authenticated By: Alaina Kaur MD Signed Date/Time: 12/05/202047 DD/ 46 TD/TT: - Medical Decision Making This is a 50-year-old -German female with a history of hypertension, morbid obesity, [id number]-gqvodwxxh diabetes, migraine headaches, chronic bilateral neuropathic pain of her lower extremities who presents to the ED with complaint of acute onset persistent worsening low back muscle spasm and bilateral lower extremity muscle pain after she developed acute exacerbation of back chronic muscle spasm and fell down on the floor of a store about 2 hours ago. Patient states that the pain has been waxing and waning since the incident occurred. Patient also complains of persistent nasal and sinus congestion with persistent dry cough for the last 2 days. In the ED, patient is alert and oriented x3 and is not in any distress. Patient is tachycardic but afebrile in triage. Chest x-ray shows no acute cardiopulmonary abnormalities or pneumonitis. Lab test results were reviewed and are all nonactionable. Patient was treated for pain in the ED and on reevaluation, patient's pain is well controlled medication. Patient discharged home on pain medications and muscle relaxants and advised to follow-up with her primary care physician in 5 to 7 days for reevaluation or return to the ED immediately if symptoms get worse. - Differential Diagnosis Chronic pain syndrome; muscle spasm; muscle strain; bronchitis; URI Critical care attestation.: If time is entered above; I have spent that time in minutes in the direct care of this critically ill patient, excluding procedure time. ED Disposition Clinical Impression: Spasm of muscle of lower back, Acute upper respiratory infection Muscle strain of lower extremity Qualifiers: Encounter type: initial encounter Laterality: unspecified laterality Qualified Code(s): S86.919A - Strain of unspecified muscle(s) and tendon(s) at lower leg level, unspecified leg, initial encounter Acute bronchitis Qualifiers: Bronchitis organism: other organism Qualified Code(s): J20.8 - Acute bronchitis due to other specified organisms Disposition: TO HOME OR SELFCARE Is pt being admited?: No Does the pt Need Aspirin: No Condition: Stable Instructions: Muscle Cramps and Spasms, [id number], Muscle Strain, [id number], Acute Bronchitis, Adult, Ikis-le-Ksyx, Upper Respiratory Infection, Adult, [id number]-[id number], Acute Bronchitis (ED) Additional Instructions: Chest x-ray shows no acute cardiopulmonary abnormalities or pneumonitis. All lab test results were reviewed and are all nonactionable. Your symptoms are likely due to chronic exacerbation of your chronic muscle spasm, and upper respiratory infection causing the persistent cough. Therefore take medication with food, drink plenty of fluids and follow-up with your primary care physician in 5 to 7 days for reevaluation. Return to the ED immediately if symptoms get worse. Prescriptions: Baclofen 20 mg PO Q12H PRN #30 tablet PRN Reason: Muscle Spasm Ibuprofen [Motrin] 800 mg PO Q8HR PRN #30 tablet PRN Reason: Pain , Severe (7-10) Benzonatate [Tessalon Perles] 100 mg PO Q8HR #30 capsule traMADoL [Ultram] 50 mg PO Q6HR PRN #12 tablet PRN Reason: Pain Cetirizine HCl [Zyrtec 10mg tab] 10 mg PO DAILY #30 tablet Referrals: [facility] [Provider Group] - 3-5 Days Time of Disposition: 22:13 Print Language: BELARUSIAN
[2020-12-06 01:55] VITALS: BP 190/80
== END 2020-12-06 00:50 | disposition home or self-care (01) ==
LOC: ED 20:06
DX: S86.919A Strain of unspecified muscle(s) and tendon(s) at lower leg level, unspecified leg, initial encounter (principal); J20.8 Acute bronchitis due to other specified organisms; J06.9 Acute upper respiratory infection, unspecified; M62.830 Muscle spasm of back; I10 Essential (primary) hypertension; E11.9 Type 2 diabetes mellitus without complications; E66.01 Morbid (severe) obesity due to excess calories; G43.909 Migraine, unspecified, not intractable, without status migrainosus; Z79.899 Other long term (current) drug therapy; Z88.8 Allergy status to other drugs, medicaments and biological substances; Z90.49 Acquired absence of other specified parts of digestive tract; W18.39XA Other fall on same level, initial encounter; Y93.89 Activity, other specified; Y92.89 Other specified places as the place of occurrence of the external cause; Y99.8 Other external cause status
CPT/HCPCS: 36415; 71045; 80053; 85025; Q0162